=== PATIENT | female | born 2005 | race Caucasian/White ===

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

== ENCOUNTER 2024-12-31 18:39 | Observation (INO) | payer BC, SELFPAY ==
[2024-12-31 18:40] VITALS: BP 151/68; PULSE 104; RESP 15; TEMP 35.8; O2SAT 100; BMI 41.5
[2024-12-31 19:18] LABS: Absolute Lymphocyte Count 2.71 X10^3/uL (0.83-4.51); Absolute Neutrophil Count 19.3 X10^3/uL (2.0-7.7); Basophil# 0.06 X10^3/uL; Basophil% 0.3 % (0-1); Eosinophil# 0.14 X10^3/uL; Eosinophils% 0.6 % (0-5); Hematocrit 40.2 % (37-47); Hemoglobin 13.5 g/dL (12.0-15.0); Lymphocyte # 2.71 X10^3/ul (0.83-4.51); Lymphocyte % 11.6 % (19-41); Mean Corp Hgb Conc 33.6 g/dL (32-36); Mean Corpuscular Hgb 28.5 pg (27.0-32.0); Mean Platelet Vol. 8.6 fl (6.2-12.0); Monocyte# 1.12 X10^3/uL; Monocyte% 4.8 % (0-10); NRBC Flagged by Analyzer 0 % (0-5); Neutrophil # 19.32 X10^3/uL (2.7-7.7); Neutrophil % 82.2 % (47-70); Platelet Count 360 K/mm3 (150-450); RBC Distribution Width CV 12.4 % (11.6-14.6); RBC Distribution Width SD 38.3 fl (35.1-43.9); Red Blood Count 4.73 M/mm3 (4.2-5.4); White Blood Count 23.5 K/mm3 (4.4-11.0)
--- NOTE | 2024-12-31 19:37 | CT_ITS ---
PROCEDURE: CT abdomen pelvis with IV contrast REASON FOR EXAM: Right lower quadrant pain TECHNIQUE: Multiple contiguous axial images through the abdomen and pelvis were obtained after the administration of intravenous contrast. Two-dimensional coronal and sagittal reformatted images were reconstructed. Low-dose imaging technique was utilized. COMPARISON: 07/25/2023 FINDINGS: Lung bases are clear. Liver, spleen, pancreas and adrenal glands are intact. Gallbladder is satisfactory. No significant biliary ductal dilation. Kidneys enhance symmetrically. No suspicious renal mass, calculi or hydronephrosis. Urinary bladder is decompressed. Uterus and ovaries are present. IUD along the endometrium. Borderline dilation of the appendix measuring up to 6 mm width subtle mucosal hyperenhancement and periappendiceal fat stranding concerning for early acute appendicitis. No bowel obstruction. Trace pelvic free fluid. No free air. No abdominal aortic aneurysm or suspicious adenopathy. Superficial soft tissues are intact. No acute osseous abnormality. CT/Abdomen/Pelvis W IV Cont ONLY IMPRESSION: Imaging findings suggestive of mild acute appendicitis. Surgical consultation recommended. One or more dose reduction techniques were used (e.g., Automated exposure contr ol, adjustment of the mA and/or kV according to patient size, use of iterative reconstruction technique). Reading Location: [facility]
[2024-12-31 19:39] LABS: ALB/GLOB Ratio 1.1 RATIO (0.9-2.4); AST(SGOT) 19 U/L (15-37); Alanine Aminotransfer ALT/SGPT 24 U/L (13-56); Albumin, Serum 3.9 g/dL (3.2-5.0); Alkaline Phosphatase 89 U/L (45-117); Anion Gap 5 (5-15); BUN 12 mg/dL (7-18); BUN/Creat Ratio 16.9 RATIO (10-20); Calcium,Total 9.1 mg/dL (8.5-10.1); Chloride 104 mmol/L (98-107); Creatinine, Serum 0.71 mg/dL (0.55-1.02); EST Glomerular Filtration Rate 111 mL/min (>60); Est Glom Filt Rate - Afr Amer 134 mL/min (>60); Estimated Creatinine Clearance 158.74 ml/min; Globulin 3.7 g/dL (2.2-4.2); Glucose 92 mg/dL (74-106); Potassium 3.7 mmol/L (3.5-5.1); Protein, Total 7.6 g/dL (6.4-8.2); Sodium Level 137 mmol/L (136-145)
[2024-12-31 19:46] LABS: Internal QC Validated? YES +Cl - CLEAR BKGD; Pregnancy, Serum, hCG Quali. NEGATIVE Negative
[2024-12-31] MEDS: 0.9% Normal Saline (1000mL) 1,000 ML 999 ML IV (19:46)
[2024-12-31 19:48] LABS: Mucous, Urine 0 SEEN /hpf (<or=2+)
[2024-12-31 19:50] LABS: Color, Urine Yellow (Yellow); Glucose, Dipstick Normal (Normal); Ketone-Dipstick 15 mg/dl (Negative); Leukocyte Esterase-Dipstick 25 /ul (Negative); Nitrite-Dipstick Negative (Negative); Occult Blood-Urine Negative /ul (Negative); Protein-Dipstick 30 mg/dl (Negative); Specific Gravity, Urine 1.015 (1.002-1.030); Urine Bilirubin Dipstick Negative (Negative); Urine Clarity Clear (Clear); Urine Urobilinogen 1 mg/dl (Normal); Urine pH 6.5 (5.0 - 8.0)
[2024-12-31 19:57] LABS: Bacteria RARE /hpf (None Seen); Red Blood Cells-Urine 0 SEEN /hpf (0-5); Squamous Epithelial Cells - UA 0-5 SEEN /hpf (5-10); White Blood Cells 0-5 SEEN /hpf (0-5)
--- NOTE | 2024-12-31 20:04 | ED.VIS.GI ---
HPI <NACHO King - Last Filed: 12/31/24 21:51> HPI - GI History of Present Illness Chief Complaint: Abd Pain Narrative Narrative: Patient presenting today with right lower quadrant abdominal pain that started around 5 PM this evening. She reports that the pain came on suddenly. It has gradually subsided since then. She reports that she did try to eat but then became nauseous and had an episode of vomiting. She denies any history of abdominal surgery. She reports normal bowel movements. She denies fevers, chills, urinary symptoms, and diarrhea. She denies any significant past medical history. PFSH <NACHO King - Last Filed: 12/31/24 21:51> PFSH Medical History Leukocytosis Home Medications ?Medication ?Instructions ?Recorded ?Last Taken ?Type ondansetron 4 mg disintegrating 4 mg PO Q8H PRN PRN Nausea #10 tabs 07/25/23 Unknown Rx tablet levonorgestrel (Mirena) 1 device intrauterine ONCE 09/12/23 Unknown History Allergy/AdvReac Type Severity Reaction Status Date / Time cephalexin (From Keflex) Allergy Intermediate Hives Verified 12/31/24 18:40 sulfamethoxazole (From Allergy Intermediate Hives Verified 12/31/24 18:40 Septra) trimethoprim (From Septra) Allergy Intermediate Hives Verified 12/31/24 18:40 Family History Grandmother Heart disease High cholesterol Father Pre-diabetes Surgical History No history of previous surgery Social History household members: friend(s) housing: other 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 Smoking Status: Light Smoker (<10/day) Electronic Cigarette Use: not used how long ago did patient quit smokin cigarette/month - only socially alcohol intake: current alcohol intake frequency: a few times a month ROS <NACHO King - Last Filed: 12/31/24 21:51> ROS ED Constitutional Constitutional ED: Denies chills or fever(s) Cardiovascular Cardiovascular: Denies chest pain Respiratory/Chest Respiratory/Chest: Denies dyspnea Gastrointestinal Gastrointestinal: Reports abdominal pain, nausea and vomiting; Denies constipation or diarrhea Genitourinary Genitourinary ED: Denies dysuria, hematuria or urinary frequency Musculoskeletal Musculoskeletal: Denies arthralgias or myalgias Integumentary Denies rash Neurologic Neurologic: Denies weakness EXAM <NACHO King - Last Filed: 12/31/24 21:51> Physical Exam Const Vital Signs: 12/31/24 18:40 12/31/24 20:39 Temperature 96.5 F L Temperature Source Temporal Pulse Rate 104 H 104 H Respiratory Rate 15 18 Blood Pressure 151/68 H 129/57 H Blood Pressure Mean 95 81 Pulse Ox 100 97 Oxygen Delivery Method Room Air Room Air Positive well nourished, well developed and no apparent distress General Appearance ED: well developed HEENT Reports normocephalic and head/scalp atraumatic Mouth ED: Yes moist mucous membranes normal Eyes PERRL and EOMs intact bilaterally Neck full ROM and supple Chest Wall inspection of chest normal Resp normal respiratory effort and clear to auscultation bilaterally Cardio regular rate and regular rhythm GI soft to palpation, non-distended and no masses GI Narrative: Tenderness to McBurney's point, no rigidity or guarding. Back/Spine normal ROM and normal to inspection Extremity normal to inspection and full ROM Neuro oriented x3, CN's II-XII intact bilaterally, moves all extremities, no focal motor deficits and no sensory deficits noted Sensorium / Orientation: awake and alert Psych mental status grossly normal and thought process normal Skin no rashes or lesions noted and no wounds <Dr. Emanuel Porter MD - Last Filed: 12/31/24 23:59> Physical Exam Const Vital Signs: 12/31/24 18:40 12/31/24 20:39 Temperature 96.5 F L Temperature Source Temporal Pulse Rate 104 H 104 H Respiratory Rate 15 18 Blood Pressure 151/68 H 129/57 H Blood Pressure Mean 95 81 Pulse Ox 100 97 Oxygen Delivery Method Room Air Room Air MDM <NACHO King - Last Filed: 12/31/24 21:51> [facility] MDM Narrative Medical decision making narrative: Patient presenting today due to right lower quadrant abdominal pain that started suddenly around 5 PM this evening. She otherwise is well-appearing and in no acute distress, her vitals are unremarkable. She does have tenderness to McBurney's point. I did offer analgesia, she declined. Labs were obtained, she has a leukocytosis at 23.5. 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 Given the location of her pain and leukocytosis, CT scan of the abdomen pelvis with IV contrast will be obtained to assess for appendicitis, ovarian cyst, kidney stone, diverticulitis. CT scan shows mild acute appendicitis. Dr. Barriga was consulted, he recommends starting her on IV antibiotics. She has a history of allergy to cephalosporins and therefore was started on gentamicin and clindamycin. She will be admitted to the hospital in stable condition. The plan is surgery tomorrow at 6 AM. Lab Data Attestation: I reviewed the patient's lab results. Labs: Laboratory Results - last 24 hr 12/31/24 12/31/24 19:05 19:40 WBC 23.5 H RBC 4.73 Hgb 13.5 Hct 40.2 MCV 85.0 MCH 28.5 MCHC 33.6 RDW Std Deviation 38.3 RDW Coeff of Rex 12.4 Plt Count 360 MPV 8.6 Immature Gran % (Auto) 0.500 Neut % (Auto) 82.2 H Lymph % (Auto) 11.6 L Lee % (Auto) 4.8 Eos % (Auto) 0.6 Baso % (Auto) 0.3 Absolute Neuts (auto) 19.3 H Absolute Lymphs (auto) 2.71 Nucleated RBC % 0 Sodium 137 Potassium 3.7 Chloride 104 Carbon Dioxide 28.0 Anion Gap 5 BUN 12 Creatinine 0.71 Estim Creat Clear Calc 158.74 Est GFR (MDRD) Af Amer 134 Est GFR (MDRD) Non-Af 111 BUN/Creatinine Ratio 16.9 Glucose 92 Calcium 9.1 Total Bilirubin 0.30 AST 19 ALT 24 Alkaline Phosphatase 89 Total Protein 7.6 Albumin 3.9 Globulin 3.7 Albumin/Globulin Ratio 1.1 Lipase 26 L Serum , Qual NEGATIVE Urine Color Yellow Urine Clarity Clear Urine pH 6.5 Ur Specific [place] 1.015 Urine Protein 30 H Urine Glucose (UA) Normal Urine Ketones 15 H Urine Occult Blood Negative Urine Nitrite Negative Urine Bilirubin Negative Urine Urobilinogen 1 H Ur Leukocyte Esterase 25 H Urine RBC 0 SEEN Urine WBC 0-5 SEEN Ur Squamous Epith Cells 0-5 SEEN Urine Bacteria RARE Urine Mucus 0 SEEN Radiography Diagnostic Testing: Clinical Impression(s) from Imaging Studies Abdomen/Pelvis CT 12/31/24 19:37 IMPRESSION: Imaging findings suggestive of mild acute appendicitis. Surgical consultation recommended. One or more dose reduction techniques were used (e.g., Automated exposure control, adjustment of the mA and/or kV according to patient size, use of iterative reconstruction technique). Reading Location: [facility] <Dr. Emanuel Porter MD - Last Filed: 12/31/24 23:59> [facility] Narrative Medical decision making narrative: Patient presenting today due to right lower quadrant abdominal pain that started suddenly around 5 PM this evening. She otherwise is well-appearing and in no acute distress, her vitals are unremarkable. She does have tenderness to McBurney's point. I did offer analgesia, she declined. Labs were obtained, she has a leukocytosis at 23.5. 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 Given the location of her pain and leukocytosis, CT scan of the abdomen pelvis with IV contrast will be obtained to assess for appendicitis, ovarian cyst, kidney stone, diverticulitis. CT scan shows mild acute appendicitis. Dr. Barriga was consulted, he recommends starting her on IV antibiotics. She has a history of allergy to cephalosporins and therefore was started on gentamicin and clindamycin. She will be admitted to the hospital in stable condition. The plan is surgery tomorrow at 6 AM. Patient presents with right lower quadrant pain that started earlier day of visit. She reports nausea. She had no vomiting or diarrhea. She has had slight decrease in appetite. She denies fever, chills night sweats. She denies history of gynecologic pathology and specifically STI or ectopic . History is remarkable for tenderness in the right lower quadrant. She does have guarding. There is no peritoneal findings. She has negative Rovsing sign. Heart lung exam is normal. Differential diagnosis would include regional enteritis, mesenteric adenitis, appendicitis, gynecologic pathology i.e. salpingitis. CBC, test electrolyte panel was obtained. Urine was obtained as well. Because of the elevated white count of 23.[address] of the abdomen was obtained. CT of the abdomen reveals acute appendicitis with no evidence of rupture or abscess. Physician assistant professor of sociology's note was reviewed. Case discussed with Dr. Stanford carreno. Initially Zosyn was ordered. This was changed because of patient having allergy to cephalexin and cefotetan with hives. She was treated with clindamycin and gentamicin. The pharmacist had there would just the gentamicin order be because I apparently used an obsolete order set. Lab Data Labs: Laboratory Results - last 24 hr 12/31/24 12/31/24 19:05 19:40 WBC 23.5 H RBC 4.73 Hgb 13.5 Hct 40.2 MCV 85.0 MCH 28.5 MCHC 33.6 RDW Std Deviation 38.3 RDW Coeff of Rex 12.4 Plt Count 360 MPV 8.6 Immature Gran % (Auto) 0.500 Neut % (Auto) 82.2 H Lymph % (Auto) 11.6 L Lee % (Auto) 4.8 Eos % (Auto) 0.6 Baso % (Auto) 0.3 Absolute Neuts (auto) 19.3 H Absolute Lymphs (auto) 2.71 Nucleated RBC % 0 Sodium 137 Potassium 3.7 Chloride 104 Carbon Dioxide 28.0 Anion Gap 5 BUN 12 Creatinine 0.71 Estim Creat Clear Calc 158.74 Est GFR (MDRD) Af Amer 134 Est GFR (MDRD) Non-Af 111 BUN/Creatinine Ratio 16.9 Glucose 92 Calcium 9.1 Total Bilirubin 0.30 AST 19 ALT 24 Alkaline Phosphatase 89 Total Protein 7.6 Albumin 3.9 Globulin 3.7 Albumin/Globulin Ratio 1.1 Lipase 26 L Serum , Qual NEGATIVE Urine Color Yellow Urine Clarity Clear Urine pH 6.5 Ur Specific [place] 1.015 Urine Protein 30 H Urine Glucose (UA) Normal Urine Ketones 15 H Urine Occult Blood Negative Urine Nitrite Negative Urine Bilirubin Negative Urine Urobilinogen 1 H Ur Leukocyte Esterase 25 H Urine RBC 0 SEEN Urine WBC 0-5 SEEN Ur Squamous Epith Cells 0-5 SEEN Urine Bacteria RARE Urine Mucus 0 SEEN Radiography Diagnostic Testing: Clinical Impression(s) from Imaging Studies Abdomen/Pelvis CT 12/31/24 19:37 IMPRESSION: Imaging findings suggestive of mild acute appendicitis. Surgical consultation recommended. One or more dose reduction techniques were used (e.g., Automated exposure control, adjustment of the mA and/or kV according to patient size, use of iterative reconstruction technique). Reading Location: [facility] Discharge Plan Dx/Rx/DC Orders Clinical Impression: Acute appendicitis Disposition Disposition: Acute Care Hospital [facility] Discharge Date/Time: 12/31/24 22:23
[2024-12-31 20:18] LABS: Lipase 26 U/L (73-393)
[2024-12-31 20:39] VITALS: BP 129/57; PULSE 104; RESP 18; O2SAT 97
[2024-12-31] MEDS: Gentamicin IV 230 MG in Dextrose 5%-Water (50mL Bag) 50 ML 115 MG IVPB (21:40)
[2024-12-31 21:42] VITALS: BP 124/64; PULSE 88; RESP 18; TEMP 36.7; O2SAT 97
[2024-12-31 21:43] VITALS: BP 124/69; PULSE 88; RESP 18; TEMP 36.7; O2SAT 98
[2024-12-31 22:00] VITALS: BP 119/59; PULSE 114; RESP 18; O2SAT 95
[2024-12-31 22:30] VITALS: BMI 40.8
[2024-12-31 22:32] VITALS: BP 124/69; PULSE 79; RESP 16; TEMP 37.1; O2SAT 96
[2024-12-31] MEDS: Clindamycin 900 MG/50 ML BAG 75 MG IV (22:59)
[2024-12-31] MEDS: 0.9% Normal Saline (1000mL) 1,000 ML 100 ML IV (22:59)
[2024-12-31] MEDS: Morphine 2 MG/ML Syringe IV (23:00)
[2024-12-31] MEDS: Ondansetron 4 MG/2 ML Vial IV (23:06)
[2025-01-01] VITALS (12 sets, daily range): BP systolic 93–126; BP diastolic 50–82; PULSE 61–102; RESP 14–18; TEMP 36.1–37; O2SAT 94–100; BMI 40.8
--- NOTE | 2025-01-01 | APP_PTH ---
PATIENT: RAJI RICHTER LOC: [facility] U#:[id number] AGE/SX: 19/F ROOM: FL314 RE12/31/[address]: Dr. Rmaón Barriga MD : 2005 BED: 1 DIS: 01/01/2025 SPEC #: [id number] RECD: 01/01/25 10:12 STATUS: CHON ANGEL LUIS #: [id number] LOPEZ: 01/01/25 00:[address]: Ramón Barriga DEPT: SURGICAL PATHOLOGY RECD BY: Stephan Landry ENTERED: 01/01/25 10:12 SP TYPE: APPENDIX OTHR DR: Dr. Emanuel Porter MD No Primary Care Phys Tissues: Appendix, NOS Procedures: Surgery Specimen Level III HEADER OPERATION: Laparoscopic appendectomy PRE-OP DIAGNOSIS: Acute appendicitis TISSUE SUBMITTED: Appendix MICROSCOPIC DIAGNOSIS Appendix, appendectomy: Acute appendicitis and periappendicitis. SJ.mr 01/02/2025 MICROSCOPIC DESCRIPTION Slides are reviewed. GROSS DESCRIPTION Received in fixative is one container labeled with the patient's name and designated appendix. The specimen consists of an appendix with attached mesoappendix. The length of the appendix is 6.5 cm in length and the greatest width is approximately 1 cm. The mesoappendix measures 4.5 x 2.0 x 1.5cm. There is no definitive exudate on the surface, but vessels appear injected. There is a staple line at the proximal margin from which a shave is taken. The appendiceal end is sectioned and transverse sectioned and appears to have fibrous obliteration. Numerous human resources representative sections of appendix submitted in one cassette. The lumen shows no definitive exudate. The appendiceal end in its entirety is submitted and the smaller cross- section represents the margin, proximal. Seven sections, one cassette. 01/01/2025 TC:2 CPT: 86167
[2025-01-01] MEDS: Bupiv/Epi 0.25% 30 ML Vial ×2 (05:34→06:42)
--- NOTE | 2025-01-01 05:50 | PCM.HP.STD ---
HPI - General General Date of Admission: 12/31/24 HPI Narrative RAJI RICHTER, is a 19 F who presents with abdominal pain. The patient was eating dinner yesterday and noted right-sided abdominal pain. She then went to the bathroom and was having a bowel movement when she had vomiting. She has not had any vomiting since. She reports the pain is still there. She denies fevers or chills. [facility] Medical History Leukocytosis Home Medications ?Medication ?Instructions ?Recorded ?Last Taken ?Type ondansetron 4 mg disintegrating 4 mg PO Q8H PRN PRN Nausea #10 tabs 07/25/23 Unknown Rx tablet levonorgestrel (Mirena) 1 device intrauterine ONCE 09/12/23 Unknown History Allergy/AdvReac Type Severity Reaction Status Date / Time cephalexin (From Keflex) Allergy Intermediate Hives Verified 12/31/24 18:40 sulfamethoxazole (From Allergy Intermediate Hives Verified 12/31/24 18:40 Septra) trimethoprim (From Septra) Allergy Intermediate Hives Verified 12/31/24 18:40 Family History Grandmother Heart disease High cholesterol Father Pre-diabetes Surgical History No history of previous surgery Social History household members: friend(s) housing: other 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 Smoking Status: Light Smoker (<10/day) Electronic Cigarette Use: not used how long ago did patient quit smokin cigarette/month - only socially alcohol intake: current alcohol intake frequency: a few times a month ROS Constitutional Constitutional: Reports anorexia; Denies chills or fatigue Eyes Eyes: Denies blurry vision ENT HEENT: Denies abnormal hearing Cardiovascular Cardiovascular: Denies chest pain Respiratory/Chest Respiratory/Chest: Denies cough or dyspnea Gastrointestinal Gastrointestinal: Reports abdominal pain, nausea and vomiting Genitourinary Genitourinary: Denies change in urinary stream Musculoskeletal Musculoskeletal: Denies abnormal gait Integumentary Integumentary: Denies jaundice Neurologic Neurologic: Denies abnormal gait Psychiatric Psychiatric: Denies anxiety Endocrine Endocrinology: Denies flushing Hematologic/Lymphatic Hematologic/Lymphatic: Denies easy bleeding Vital Signs Vital Signs Vital Signs: 12/31/24 18:40 12/31/24 20:39 12/31/24 21:42 Temperature 96.5 F L 98.1 F Temperature Source Temporal Pulse Rate 104 H 104 H 88 Respiratory Rate 15 18 18 Blood Pressure 151/68 H 129/57 H 124/64 H Blood Pressure Mean 95 81 84 Blood Pressure Source Blood Pressure Position Blood Pressure Location Pulse Ox 100 97 97 Oxygen Delivery Method Room Air Room Air 12/31/24 21:43 12/31/24 22:00 12/31/24 22:32 Temperature 98.1 F 98.8 F Temperature Source Oral Oral Pulse Rate 88 114 H 79 Respiratory Rate 18 18 16 Blood Pressure 124/69 H 119/59 L 124/69 H Blood Pressure Mean 87 79 87 Blood Pressure Source Blood Pressure Position Blood Pressure Location Pulse Ox 98 95 96 Oxygen Delivery Method Room Air Room Air Room Air 01/01/25 05:00 Temperature 98.0 F Temperature Source Oral Pulse Rate 72 Respiratory Rate 14 Blood Pressure 109/50 L Blood Pressure Mean 69 Blood Pressure Source Monitor Blood Pressure Position Semi-Fowlers Blood Pressure Location Left Arm Pulse Ox 100 Oxygen Delivery Method Room Air Weight Weight: 245 lb 9.519 oz Body Mass Index (BMI) 40.8 Physical Exam Const oriented x3 and no apparent distress Resp normal respiratory effort GI soft to palpation Palpation: tender RLQ Results Lab / Micro Data 12/31/24 19:05 12/31/24 19:05 Labs: Laboratory Results - last 24 hr 12/31/24 19:05: WBC 23.5 H, RBC 4.73, Hgb 13.5, Hct 40.2, MCV 85.0, MCH 28.5, MCHC 33.6, RDW Std Deviation 38.3, RDW Coeff of Rex 12.4, Plt Count 360, MPV 8.6, Immature Gran % (Auto) 0.500, Neut % (Auto) 82.2 H, Lymph % (Auto) 11.6 L, Martin % (Auto) 4.8, Eos % (Auto) 0.6, Baso % (Auto) 0.3, Absolute Neuts (auto) 19.3 H, Absolute Lymphs (auto) 2.71, Nucleated RBC % 0, Sodium 137, Potassium 3.7, Chloride 104, Carbon Dioxide 28.0, Anion Gap 5, BUN 12, Creatinine 0.71, Estim Creat Clear Calc 158.74, Est GFR (MDRD) Af Amer 134, Est GFR (MDRD) Non-Af 111, BUN/Creatinine Ratio 16.9, Glucose 92, Calcium 9.1, Total Bilirubin 0.30, AST 19, ALT 24, Alkaline Phosphatase 89, Total Protein 7.6, Albumin 3.9, Globulin 3.7, Albumin/Globulin Ratio 1.1, Lipase 26 L, Serum , Qual NEGATIVE 12/31/24 19:40: Urine Color Yellow, Urine Clarity Clear, Urine pH 6.5, Ur Specific [place] 1.015, Urine Protein 30 H, Urine Glucose (UA) Normal, Urine Ketones 15 H, Urine Occult Blood Negative, Urine Nitrite Negative, Urine Bilirubin Negative, Urine Urobilinogen 1 H, Ur Leukocyte Esterase 25 H, Urine RBC 0 SEEN, Urine WBC 0-5 SEEN, Ur Squamous Epith Cells 0-5 SEEN, Urine Bacteria RARE, Urine Mucus 0 SEEN Imaging Radiology Impression Abdomen/Pelvis CT 12/31/24 19:37 IMPRESSION: Imaging findings suggestive of mild acute appendicitis. Surgical consultation recommended. One or more dose reduction techniques were used (e.g., Automated exposure control, adjustment of the mA and/or kV according to patient size, use of iterative reconstruction technique). Reading Location: [facility] Assessment & Plan Assessment/Plan (1) Acute appendicitis: PLAN: Patient has an elevated white count and a CT scan that shows some periappendiceal stranding. Her pain is in the right lower abdomen and this is all consistent with acute appendicitis. I discussed laparoscopic appendectomy with the patient in detail. I discussed the risks including but not limited to bleeding, infection, injury other organs. Patient understands the risks and is willing to proceed. She was given antibiotics in the emergency room. Ramón Barriga MD Pager: [facility] [address] [place] [address], [address] [place] [address] Office:
--- NOTE | 2025-01-01 06:09 | PRE.ANES_ITS ---
ASA Classification* ASA Classification ASA Classification: 3 Assessment & Plan Anesthesia* Anesthesia Assessment Anesthesia Assessment: Discussed sedation and/or anesthesia options, risks, benefits, and alternatives with patient/parents/legal guardian/POA. Questions invited. The patient/parents/legal guardian/POA seems to understand and agrees to proceed with anesthesia plan. Reviewed the physical assessment, medical history, allergy history and patient home medications list prior to surgery/procedure/anesthetic and documented any changes. Performed airway and anesthesia risk assessments. Anesthesia Type Anesthesia Type: General History Source History Obtained from:: Patient and Chart Anesthesia Focused Assessment* Temperature: 98.0 F Pulse Rate: 72 Blood Pressure: 109/50 Respiratory Rate: 14 Pulse Ox: 100 Oxygen Delivery Method: Room Air Airway Assessment Mouth opens: >3 cm Mallampati Score: II Teeth Condition: Intact Neck Range of motion (ROM): Full ROM Focused Labs Anesthesia Preop lab: CBC WBC 23.5 K/mm3 (4.4-11.0) H 12/31/24 19:05 5 RBC 4.73 M/mm3 (4.2-5.4) 12/31/24 19:05 12/31/24 Hgb 13.5 g/dL (12.0-15.0) 12/31/24 19:05 12/31/24 Hct 40.2 % (37-47) 12/31/24 19:05 12/31/24 Plt Count 360 K/mm3 (150-450) 12/31/24 19:05 12/31/24 CHEMISTRY Potassium 3.7 mmol/L (3.5-5.1) 12/31/24 19:05 12/31/24 Sodium 137 mmol/L (136-145) 12/31/24 19:05 12/31/24 BUN 12 mg/dL (7-18) 12/31/24 19:05 12/31/24 Creatinine 0.71 mg/dL (0.55-1.02) 12/31/24 19:05 12/31/24 Glucose 92 mg/dL (74-106) 12/31/24 19:05 12/31/24 COAG Pre-Assessment Diagnosis/Proposed Procedure Planned Operative Procedure(s): Laparoscopic appendectomy Anesthesia History 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 When Was Last Pacemaker Check QUESTION #4 FULL TEXT: You/Your Family Experience fever (hyperthermia) with Anesthesia Last Oral Intake Last Oral intake: Last Oral Intake NPO since 23:00 01/01/25 05:00 Meds taken in AM with sips of No 01/01/25 05:00 water? Meds patient instructed to take am of surgery PONV PONV - tester semiconductor packages: PONV - tester semiconductor packages Female HX of Motion Sickness HX of N/V After Surgery Non-Smoker Duration of Surgery greater than 60 minutes Number of Risk Factors PONV Score Height & Weight Height & Weight: Anesthesia: Height & Weight Height 5 ft 5 in 01/01/25 05:00 Weight: 111.4 kg 01/01/25 05:00 Body Mass Index (BMI) 40.8 01/01/25 05:00 Respiratory Assessment Respiratory Assessment - tester semiconductor packages: Respiratory Tract Infection Hx - tester semiconductor packages Hx Respiratory Tract Infection No 01/01/25 00:29 STOP Sleep Apnea STOP Sleep Apnea - tester semiconductor packages: STOP Sleep Apnea - tester semiconductor packages Hx Hypertension No 12/31/24 22:30 Hx Sleep Apnea No 12/31/24 22:30 CPAP BIPAP Do you snore loudly (louder No 12/31/24 22:30 than talking or can be heard Do you often feel tired/ No 12/31/24 22:30 fatigued/ sleepy during daytime? Has anyone observed you stop No 12/31/24 22:30 breathing during sleep? STOP Results Negative 12/31/24 22:30 QUESTION #5 FULL TEXT : Do you snore loudly (louder than talking or can be heard through closed doors)? 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 Specify any problems Hx of Preganancy in last 3 No 12/31/24 22:30 Months Nurse Filling Out Transfusion [email or web address] 12/31/24 22:30 & Questions: Date: 12/31/24 12/31/24 22:30 Time: 22:46 12/31/24 22:30 Patient unable to answer at this time (ie. confused, unrespo /Reproduction History /Reproductive History - tester semiconductor packages: /Reproductive Hx- tester semiconductor packages Hx Now No 01/01/25 00:29 Gestational Age (in weeks): EDC: Hx Hx Para Hx Section SAB No 01/01/25 00:29 Active Medications Active Medications: Current Medications Generic Name Dose Route Start Last Admin Trade Name Freq PRN Reason Stop Dose Admin Sodium Chloride 1,000 mls @ 100 mls/hr 12/31/24 21:15 01/01/25 05:56 IV 01/01/25 17:14 0 mls/hr .Q10H ROBERTO CARLOS Infusion Protocol Sodium Chloride 100 mls @ 15 mls/hr 12/31/24 22:35 IV .Q6H40M PRN Saline Flush Sodium Chloride 100 mls @ 15 mls/hr 12/31/24 22:35 IV .Q6H40M PRN Additional IVPB Infusion Morphine Sulfate 2 - 4 mg 12/31/24 21:14 12/31/24 23:00 Morphine 2 Mg/Ml Syringe IV 2 mg Q2H PRN PRN Administration Pain Score 4-10 Morphine Sulfate 2 - 4 mg 12/31/24 21:29 Morphine 4 Mg/Ml Syringe IV Q2H PRN PRN Pain Score 4-10 Ondansetron HCl 4 mg 12/31/24 21:14 12/31/24 23:06 Ondansetron 4 Mg/2 Ml Vial IV 4 mg Q6H PRN PRN Administration NAUSEA/VOMITING Sodium Chloride 10 - 40 ml 12/31/24 21:14 0.9% Saline Lock 10 Ml Syringe IV UD PRN SALINE FLUSH Sodium Chloride 10 - 40 ml 12/31/24 21:14 0.9% Saline Lock 10 Ml Syringe IV UD PRN SALINE FLUSH Sodium Chloride 10 - 40 ml 12/31/24 22:35 0.9% Saline Lock 10 Ml Syringe IV UD PRN SALINE FLUSH PFSH Medical History Leukocytosis Home Medications ?Medication ?Instructions ?Recorded ?Last Taken ?Type ondansetron 4 mg disintegrating 4 mg PO Q8H PRN PRN Na usea #10 tabs 07/25/23 Unknown Rx tablet levonorgestrel (Mirena) 1 device intrauterine ONCE 1 Unknown History Allergy/AdvReac Type Severity Reaction Status Date / Time cephalexin (From Keflex) Allergy Intermediate Hives Verified 12/31/24 18:40 sulfamethoxazole (From Allergy Intermediate Hives Verified 12/31/24 18:40 Septra) trimethoprim (From Septra) Allergy Intermediate Hives Verified 12/31/24 18:40 Family History Grandmother Heart disease High cholesterol Father Pre-diabetes Surgical History No history of previous surgery Social History household members: friend(s) housing: other 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
--- NOTE | 2025-01-01 06:52 | PCM.OPRPT ---
Operative Report (Standard) Operative Information Date of Procedure: 01/01/25 Pre-Operative Diagnosis: Acute appendicitis Post-Operative Diagnosis: Acute appendicitis Surgery/Procedure Performed: Laparoscopic appendectomy director building: No Type of Anesthesia: General/Regional RN Documented Start/Stop Times: Operation Date: 01/01/25 06:20 Case Time Anesthesia Start 01/01/25 06:13 Into Room 01/01/25 06:13 Procedure Start 01/01/25 06:33 Procedure End 01/01/25 06:48 Procedure Start Time: 06:33 Procedure Stop Time: 06:48 Select all DRAINS/GRAFTS/IMPLANTS that apply: None Estimated Blood Loss: 5 Specimen collected: Yes Description of specimen(s) removed: Appendix Description of surgery: The patient was brought into the operating room and general anesthesia was induced. The left arm was tucked and the abdomen was prepped and draped in usual sterile fashion. A small midline incision was made superior to the umbilicus and deepened to the level of the fascia. The fascia was elevated and incised. The peritoneum was also elevated and incised. A finger sweep was performed and a balloon trocar was placed into the abdomen and inflated. The abdomen was insufflated to 15 mmHg and the camera was inserted and the abdomen was inspected for any injuries upon entering the abdomen. There were none. The patient was placed in Trendelenburg position and a 5 mm ports placed in the left lower quadrant and suprapubic areas under direct visualization. Next using atraumatic bowel graspers the appendix was identified. The appendix was grasped and elevated and Enseal was used to take down the mesoappendix. A stapler was used to come across the base of the appendix. The appendix was then placed in Endo Catch bag and removed through the umbilical incision. The staple line was inspected and found to be hemostatic and intact. The 2 5 mm ports are removed under direct visualization. The balloon trocar was deflated and removed and all the air was removed from the abdomen. The umbilical incision fascia was closed with an 0 Vicryl [id number] suture. The incisions were then irrigated with saline and dried. Local anesthetic was injected into the incision sites. The skin incisions were then closed with interrupted 4-0 Monocryl suture and Steri-Strips. Bandages were applied and the patient was awoken and taken to PACU in stable condition. Patient tolerated the procedure well. Surgical Findings: Mildly inflamed appendix Complications Complications: No Admit VTE Documentation VTE Mechan Device Prophylaxis: SCD's
--- NOTE | 2025-01-01 06:57 | DS.PCM_ITS ---
Providers Date of Admission: 12/31/24 Primary Care Physician: No Primary Care Phys Reason For Visit: ACUTE APPENDICITIS Diagnosis Discharge Diagnosis (1) Acute appendicitis: Status: Acute Code(s): K35.80 - Unspecified acute appendicitis Plan: Patient has an elevated white count and a CT scan that shows some periappendiceal stranding. Her pain is in the right lower abdomen and this is all consistent with acute appendicitis. I discussed laparoscopic appendectomy with the patient in detail. I discussed the risks including but not limited to bleeding, infection, injury other organs. Patient understands the risks and is willing to proceed. She was given antibiotics in the emergency room. Ramón Barriga MD Pager: [facility] [address] [place] [address], [address] [place] [address] Office: Medications at Discharge Home Medications ondansetron 4 mg disintegrating tablet 4 mg PO Q8H PRN PRN Nausea #10 tabs 07/25/23 levonorgestrel (Mirena) 1 device intrauterine ONCE 09/12/23 acetaminophen 325 mg tablet 650 mg (2 x 325 mg) PO Q4H PRN PRN Pain 1-10 Or Fever #0 tabs 01/01/25 oxycodone 5 mg tablet 5 - 10 mg (1 - 2 x 5 mg) PO Q4H PRN PRN Pain Score 4-10 5 days #15 tabs 01/01/25 Hospital Course Operations appendectomy Summary of Care Provided Hospital Course: Patient was admitted with acute appendicitis and the following morning she was taken for laparoscopic appendectomy. Once tolerating a diet and her pain is well-controlled on p.o. medication she will be discharged Weight / BMI Weight Weight: 245 lb 9.519 oz Body Mass Index (BMI) 40.8 ABG / Lab / Microbiology Data 12/31/24 19:05 12/31/24 19:05 Laboratory: Laboratory Results - last 24 hr 12/31/24 19:05: WBC 23.5 H, RBC 4.73, Hgb 13.5, Hct 40.2, MCV 85.0, MCH 28.5, MCHC 33.6, RDW Std Deviation 38.3, RDW Coeff of Rex 12.4, Plt Count 360, MPV 8.6, Immature Gran % (Auto) 0.500, Neut % (Auto) 82.2 H, Lymph % (Auto) 11.6 L, Navarro % (Auto) 4.8, Eos % (Auto) 0.6, Baso % (Auto) 0.3, Absolute Neuts (auto) 19.3 H, Absolute Lymphs (auto) 2.71, Nucleated RBC % 0, Sodium 137, Potassium 3.7, Chloride 104, Carbon Dioxide 28.0, Anion Gap 5, BUN 12, Creatinine 0.71, Estim Creat Clear Calc 158.74, Est GFR (MDRD) Af Amer 134, Est GFR (MDRD) Non-Af 111, BUN/Creatinine Ratio 16.9, Glucose 92, Calcium 9.1, Total Bilirubin 0.30, AST 19, ALT 24, Alkaline Phosphatase 89, Total Protein 7.6, Albumin 3.9, Globulin 3.7, Albumin/Globulin Ratio 1.1, Lipase 26 L, Serum , Qual NEGATIVE 12/31/24 19:40: Urine Color Yellow, Urine Clarity Clear, Urine pH 6.5, Ur Specific [place] 1.015, Urine Protein 30 H, Urine Glucose (UA) Normal, Urine Ketones 15 H, Urine Occult Blood Negative, Urine Nitrite Negative, Urine Bilirubin Negative, Urine Urobilinogen 1 H, Ur Leukocyte Esterase 25 H, Urine RBC 0 SEEN, Urine WBC 0-5 SEEN, Ur Squamous Epith Cells 0-5 SEEN, Urine Bacteria RARE, Urine Mucus 0 SEEN Radiography Diagnostic Testing: Radiology Impression Abdomen/Pelvis CT 12/31/24 19:37 IMPRESSION: Imaging findings suggestive of mild acute appendicitis. Surgical consultation recommended. One or more dose reduction techniques were used (e.g., Automated exposure control, adjustment of the mA and/or kV according to patient size, use of iterative reconstruction technique). Reading Location: [facility] Instructions Discharge Diet: Light diet - advance as tolerated Discharge Activity: May Not Drive (for 2-3 days or while taking narcotic pain medications.) May shower in (days): 1 Lifting Restrictions: 20 lbs for 2 weeks Call your doctor if your incision/area has: Continuous Slow Oozing, Sudden Increased Bleeding, Increased Pain/ Swelling, Increased Redness and Foul Smelling Discharge Call your doctor if you observe: Fever of 101 or Higher Suture Line Care: Avoid Pulling/Pushing and Avoid Pinching/Bending Remove Dressing in: 2 days Cleanse incision/area with: Soap & Water Additional Dressing/Incision Instructions: Keep dressing clean and dry. Change or remove dressing in 2 days. Leave steri strips for 1 week. May protect with a gauze bandaid. DC O2, CPAP, BIPAP Needs Home O2 Discharge instructions: No DC home with Oxygen: No Please Follow Up With: Ramón Barriga MD When: Please call to schedule 2 week follow up appointment. [phone] Meaningful Use Info Meaningful Use Meaningful Use Diagnoses (Choose all that apply): None applicable Ischemic Stroke Statin Dosing Therapy Reference: STATIN DOSE THERAPY REFERENCE: * Patients > 75 years receive moderate or high dose statin therapy. * Patients 75 years or YOUNGER should receive HIGH intensity statin dose unless contraindicated. You will be required to document reason for non-treatment if statin daily dose does not meet guidelines. HIGH DOSE STATIN THERAPY DAILY Atorvastatin > than or = to 40 mg Rosuvastatin > than or = to 20 mg Amlodipine + Atorvastatin > than or = to 2.5/40 mg Ezetimibe + Simvastatin 10/80 mg Simvastatin 80mg Discharge Plan Admission Admit Date/Time: 12/31/24 21:14 Attending Provider: Ramón Barriga Primary Care Provider: Care PhysicianErma Primary Discharge Orders/Prescriptions Prescriptions: New acetaminophen 325 mg Tablet 650 mg PO Q4H PRN PRN (Reason: Pain 1-10 Or Fever) Qty: 0 0RF oxycodone 5 mg Tablet 5 - 10 mg PO Q4H PRN PRN (Reason: Pain Score 4-10) 5 Days Qty: 15 0RF Continued Mirena 21 mcg/24 hours (8 yrs) 52 mg intrauterine device 1 device intrauterine ONCE Rx Instructions: as a single dose ondansetron 4 mg tablet,disintegrating 4 mg PO Q8H PRN PRN (Reason: Nausea) Qty: 10 0RF Referrals / Follow Up: Care PhysicianErma Primary [Primary Care Provider] - Disposition Disposition (needs filled in before D/C Order can be placed): Home, Self Care
--- NOTE | 2025-01-01 07:36 | PCM.POST.ANE ---
Anesthesia: Postop Eval I Current Vital Signs Temperature: 98.6 F Pulse Rate: 78 Blood Pressure: 113/74 Respiratory Rate: 18 Pulse Ox: 99 Oxygen Delivery Method: Room Air Assessment Airway patent: Yes Spontaneous unlabored respirations: Yes Mental status: Awake and Calm nausea: No Vomiting: No Anesthesia Complication: No Fluid Hydration Crystalloid volume administer (ml): 250 Total IV fluid infused: 250 Progress Note Anesthesia document: Postop Eval 1 completed: Yes
--- NOTE | 2025-01-01 14:19 | POSTOPAN2_ITS ---
Anesthesia Postop Eval I Sum Postop Eval Completion status Anesthesia document: Postop Eval 1 completed: Yes Anesthesia Postop Eval I Summary Anesthesia Postop Eval I Summary: Anesthesia Postop Eval I: Assessment Summary Airway patent Yes 01/01/25 07:37 [employer]JCLI Spontaneous unlabored Yes 01/01/25 07:37 [employer]DANIELLI respirations Mental status Awake,Calm 01/01/25 07:37 [employer]JCLI nausea No 01/01/25 07:37 [employer]JCLI Vomiting No 01/01/25 07:37 [employer]LI Anesthesia Postop Eval I: Fluid Summary Crystalloid volume administer 250 01/01/25 07:37 [employer]JCLI (ml) Colloids volume administered ( ml) Blood Product volume administered (ml) Total IV fluid infused 250 01/01/25 07:37 [employer]DANIELLI Anesthesia Postop Eval I: Summary Notes Anesthesia Complication No 01/01/25 07:37 [employer]LI Anesthesia Complication Comment: Post-operative progress note Anesthesia: Postop Eval II Evaluation Mental status: Awake and Calm Pain Level: 1 nausea: No Vomiting: No Complications Anesthesia Complication: No
--- NOTE | 2025-01-01 14:19 | PCM.POSTANE2 ---
Anesthesia Postop Eval I Sum Postop Eval Completion status Anesthesia document: Postop Eval 1 completed: Yes Anesthesia Postop Eval I Summary Anesthesia Postop Eval I Summary: Anesthesia Postop Eval I: Assessment Summary Airway patent Yes 01/01/25 07:37 [employer].JCLI Spontaneous unlabored Yes 01/01/25 07:37 [employer].DANIELLI respirations Mental status Awake,Calm 01/01/25 07:37 [employer].JCLI nausea No 01/01/25 07:37 [employer].JCLI Vomiting No 01/01/25 07:37 [employer].LI Anesthesia Postop Eval I: Fluid Summary Crystalloid volume administer 250 01/01/25 07:37 [employer].JCLI (ml) Colloids volume administered ( ml) Blood Product volume administered (ml) Total IV fluid infused 250 01/01/25 07:37 [employer].DANIELLI Anesthesia Postop Eval I: Summary Notes Anesthesia Complication No 01/01/25 07:37 [employer].LI Anesthesia Complication Comment: Post-operative progress note Anesthesia: Postop Eval II Evaluation Mental status: Awake and Calm Pain Level: 1 nausea: No Vomiting: No Complications Anesthesia Complication: No
[2025-01-01] MEDS: 0.9% Normal Saline (1000mL) 1,000 ML 100 ML IV (14:28)
--- NOTE | 2025-01-01 15:55 | CHAPLAIN ---
Type of Pastoral Visit _x__ Initial Visit ___ Follow-up Visit ___ On-call Visit ___ General Patient Visit ___ Spiritual Assessment ___ Family Conference ___ Bereavement ___ Rapid Response ___ Code Blue ___ Other (describe below) Pastoral Care Referral From _x__ Patient ___ Family ___ Nurse ___ Physician ___ Child Attendant ___ Paper Box Cutter ___ Other (describe below) Sacrament/Intervention _x__ Active listening ___ Anointing ___ Judaism ___ Bereavement ___ Communion ___ Mai exploration ___ _x__ Life review ___ Prayer ___ Reconciliation ___ Sacrament of Sick ___ Supportive presence ___ Wedding ___ Other (describe below) Pastoral Comments 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
== END 2025-01-01 16:58 | disposition home or self-care (01) ==
LOC: ED 20:10 → MS3 21:20
PROVIDERS: Physician Assistant; Admitting Provider Surgery; Emergency Provider Emergency Medicine; Referring Provider Emergency Medicine; Visit Provider Surgery
PROC: 0DTJ4ZZ Resection of Appendix, Percutaneous Endoscopic Approach (ICD-10-PCS; CPT 44970; principal; 2025-01-01 06:00)
DX: K35.80 Unspecified acute appendicitis (principal); F17.210 Nicotine dependence, cigarettes, uncomplicated
CPT/HCPCS: 44970; 00840; 74177; 80053; 81001; 83690; 84703; 85025; 88304; 93005; 94668; 96361; 96365; 96366; 96368; 96375; 99221; 99285; Q9967; A4216; G0378; J2405